=== PATIENT | female | born 2000 | race Caucasian/White ===

== ENCOUNTER 2020-10-09 14:29 | Emergency (ER) | payer SELFPAY ==
[~2020-10-09 14:29] MED LIST: Iopamidol 370 76% 100 ML VIAL ONE
[2020-10-09] MEDS ORDERED: Ondansetron PF 4 MG/2 ML Vial ONE (15:14)
[2020-10-09 15:26] LABS: BHCG - Serum Negative (NEGATIVE); Pregs Control Background? CLEAR/WHITE (CLR/WHITE); Pregs Control Bar Appear? YES (CONTROL BAR)
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
== END 2020-10-09 17:05 | disposition short-term general hospital (02) ==
LOC: MADERS 14:29
DX: S12.500A Unspecified displaced fracture of sixth cervical vertebra, initial encounter for closed fracture (principal); E11.9 Type 2 diabetes mellitus without complications; F31.9 Bipolar disorder, unspecified; F41.9 Anxiety disorder, unspecified; Z79.84 Long term (current) use of oral hypoglycemic drugs; Z79.899 Other long term (current) drug therapy; V89.2XXA Person injured in unspecified motor-vehicle accident, traffic, initial encounter
CPT/HCPCS: 36415; 36416; 70450; 71260; 72125; 84703; 96374; G0390; J2405; Q9967